=== PATIENT | female | born 1945 | race Caucasian/White ===

== ENCOUNTER 2018-07-02 17:13 | Inpatient (IN) ==
--- NOTE | 2018-07-02 17:52 | ED ---
HPI General Chief Complaint: Abdominal Pain Stated Complaint: ABD Pain Time Seen by Provider: 07/02/18 17:23 History of Present Illness HPI narrative: 72 year old female presents to the ED for evaluation of epigastric pain. She reports it began around 3 hours ago and radiates to her back. She reports nausea but no vomiting. No changes in bowel movements. She reports that the pain is 6/10 and constant. She states that it improves when she burps. She says that she has HTN and had open heart surgery 8 months ago. She denies any abdominal surgery besides a tubal ligation many years ago. Patient denies shortness of breath, chest pain, headaches, dizziness, blurry vision. Denies any to make it better or worse. Per patient she denies eating anything new. [place]. 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 SKIN: Focused skin assessment warm/dry. HEAD: Atraumatic. Normocephalic. EYES: Pupils equal and round. No scleral icterus. No injection or drainage. ENT: No nasal bleeding or discharge. Mucous membranes pink and moist. Tongue is midline. No uvula deviation. NECK: Trachea midline. No JVD. CARDIOVASCULAR: Regular rate and rhythm. No murmur appreciated. RESPIRATORY: No accessory muscle use. Clear to auscultation. Breath sounds equal bilaterally. GASTROINTESTINAL: Abdomen soft, some tenderness to palpation on the right upper quadrant of the abdomen, nondistended. Hepatic and splenic margins not palpable. MUSCULOSKELETAL: No obvious deformities. No clubbing. No cyanosis. No edema. Full range of motion of the upper and lower extremity bilaterally. 2+ pulses bilaterally. NEUROLOGICAL: Awake and alert. No obvious cranial nerve deficits. Motor grossly within normal limits. Normal speech. PSYCHIATRIC: Appropriate mood and affect; insight and judgment normal. Course Initial Documented Vital Signs Temperature 97.4 F L 07/02/18 17:16 Pulse Rate 82 07/02/18 17:16 Respiratory Rate 17 07/02/18 17:16 Blood Pressure 235/108 H 07/02/18 17:16 Pulse Oximetry 100 07/02/18 17:16 Last Documented Vital Signs Temperature 97.9 F 07/02/18 18:31 Pulse Rate 81 07/02/18 18:31 Respiratory Rate 22 07/02/18 18:31 Blood Pressure 241/119 H 07/02/18 18:31 Pulse Oximetry 100 07/02/18 18:31 Medical Decision Making MDM Narrative Medical decision making narrative: 72-year-old female who presents to the ED for evaluation of epigastric pain. Patient was properly examined and was found to have signs and symptoms consistent with appears to be epigastric pain. Unclear etiology. Labs and imaging ordered. Labs and imaging show elevated LFTs and signs of possible gallbladder versus liver disease. Ultrasound was ordered. Ultrasound did show possible obstruction with inflammation of the gallbladder. Cannot really see a gallbladder stone but they recommended HIDA scan if concern for cholecystitis. Because of the patient's symptoms I do recommend admission for further evaluation and treatment for this. Case discussed with my attending who recommends the patient be admitted for this. Case discussed with Dr. Vernon who agrees admission to her service. HIDA scan ordered by hair. Case discussed with patient's family and patient herself agree with admission plan. Patient started on Zosyn by me. Medical Screen Exam Complete: Yes Emergency Medical Condition: Yes Differential Diagnosis Differential Diagnosis: Chest pain versus ACS versus epigastric pain versus pancreatitis versus gallbladder disease versus cholecystitis versus cholelithiasis Medical Records Medical records reviewed: Yes I reviewed the patient's medical records. Lab Data Lab results reviewed: Yes I reviewed the patient's lab results. Result diagrams: 07/02/18 17:51 07/02/18 17:51 Lab Results 07/02/18 07/02/18 07/02/18 Range/Units 17:51 17:51 17:51 WBC 5.8 (4.0-11.0) th/mm3 RBC 4.67 (4.00-5.30) mil/mm3 Hgb 13.2 (11.6-15.3) gm/dL Hct 39.8 (35.0-46.0) % MCV 85.3 (80.0-100.0) fL MCH 28.4 (27.0-34.0) pg MCHC 33.3 (32.0-36.0) % RDW 16.0 (11.6-17.2) % Plt Count 146 L (150-450) th/mm3 MPV 8.1 (7.0-11.0) fL Neut % (Auto) 79.6 H (16.0-70.0) % Lymph % (Auto) 11.5 (9.0-44.0) % [place] % (Auto) 7.4 (0.0-8.0) % Eos % (Auto) 1.1 (0.0-4.0) % Baso % (Auto) 0.4 (0.0-2.0) % Neut # (Auto) 4.6 (1.8-7.7) th/mm3 Lymph # (Auto) 0.7 L (1.0-4.8) th/mm3 [place] # (Auto) 0.4 (0.0-0.9) th/mm3 Eos # (Auto) 0.1 (0.0-0.4) th/mm3 Baso # (Auto) 0.0 (0.0-0.2) th/mm3 WBC Differential . Differential Comment Auto diff final Sodium 140 (136-145) meq/L Potassium 3.9 (3.5-5.1) meq/L Chloride 104 (98-107) meq/L Carbon Dioxide 27.1 (21.0-32.0) meq/L Anion Gap 9 (5-15) meq/L BUN 18 (7-18) mg/dL Creatinine 1.02 H (0.50-1.00) mg/dL Estimated GFR 53 L (>89) mL/min Random Glucose 156 H (74-106) mg/dL Calcium 9.7 (8.5-10.1) mg/dL Total Bilirubin 1.7 H (0.2-1.0) mg/dL AST 80 H (15-37) U/L ALT 59 H (10-53) U/L Alkaline Phosphatase 130 H (45-117) U/L Total Creatine Kinase 173 (26-192) U/L CK-MB (CK-2) 5.1 H (0.5-3.6) ng/mL Troponin I Less than 0.02 L (0.02-0.05) ng/mL Total Protein 8.1 (6.4-8.2) g/dL Albumin 4.5 (3.4-5.0) g/dL Lipase 169 (73-393) U/L Imaging Data Attestation: I personally reviewed and interpreted this imaging study as follows : Radiologist's impression: Chest X-Ray 07/02/18 17:45 CONCLUSION: No acute cardiopulmonary disease identified. Gallbladder Ultrasound 07/02/18 18:57 CONCLUSION: 1. Equivocal findings with a focal area of echogenicity adjacent to the dependent gallbladder wall without shadowing. Cannot exclude a nonshadowing stone with certainty. Prominent common bile duct at the upper limits normal in size without definite intraluminal filling defect. If there is a high clinical index of suspicion for cholecystitis, may consider performing nuclear hepatobiliary tract scan. ECG Data Attestation: I personally reviewed and interpreted this ECG as follows: Interpretation: EKG shows sinus rhythm with no sign of acute ischemia or arrhythmia read by me and attending. Discharge Plan Discharge Order Discharge Orders: ED Use Only Admit Order (Routine); Ordered 07/02/18 Ordered By: Dewayne Bull Physicians Team ED Provider: Lincoln Barry ED Midlevel Provider: Dewayne Bull Rxs /Orders / Referrals /Forms Prescriptions: No Action metoprolol tartrate 100 mg Tablet 50 mg PO BID RF: 0 clopidogrel [Plavix] 75 mg Tablet 75 mg PO DAILY RF: 0 aspirin [Aspirin Low Dose] 81 mg Tablet,Delayed Release (Dr/Ec) 81 mg PO DAILY RF: 0 ergocalciferol (vitamin D2) [Vitamin D2] 50,000 unit Capsule 50,000 unit PO QWEEK RF: 0 Status ED Status: Admitted Patient
--- NOTE | 2018-07-02 18:02 | XR ---
EXAM DATE: 07/02/2018 5:57 PM EST AGE/SEX: 72 years / Female INDICATIONS: Chest pain. CLINICAL DATA: This is the patient's subsequent encounter. Patient reports that signs and symptoms h ave been present for 1 day and indicates a pain score of 6/10. MEDICAL/SURGICAL HISTORY: Cardiovascular disease. CABG. COMPARISON: No prior exams available for comparison. FINDINGS: Single AP view the chest. Median sternotomy wires are present. The lungs are clear. Cardio mediastinal silhouette within normal limits. No evidence of pleural effusion or pneumothorax. CONCLUSION: No acute cardiopulmonary disease identified. Electronically signed by: Naren Stanton MD Board Certified Radiologist 07/02/2018 6:01 PM EST
[2018-07-02 18:09] LABS: Baso % (Auto) 0.4 % (0.0-2.0); Eos # (Auto) 0.1 th/mm3 (0.0-0.4); Eos % (Auto) 1.1 % (0.0-4.0); Hematocrit 39.8 % (35.0-46.0); Hemoglobin 13.2 gm/dL (11.6-15.3); Lymph # (Auto) 0.7 th/mm3 (1.0-4.8); Lymph % (Auto) 11.5 % (9.0-44.0); Mean Corpuscular HGB Conc 33.3 % (32.0-36.0); Mean Corpuscular Hemoglobin 28.4 pg (27.0-34.0); Mean Corpuscular Volume 85.3 fL (80.0-100.0); Mean Platelet Volume 8.1 fL (7.0-11.0); Mono # (Auto) 0.4 th/mm3 (0.0-0.9); Mono % (Auto) 7.4 % (0.0-8.0); Neut # (Auto) 4.6 th/mm3 (1.8-7.7); Neut % (Auto) 79.6 % (16.0-70.0); Platelet Count 146 th/mm3 (150-450); Red Blood Count 4.67 mil/mm3 (4.00-5.30); White Blood Count 5.8 th/mm3 (4.0-11.0)
[2018-07-02] MEDS ORDERED: Morphine Inj 4 MG/ML Vial IV.PUSH ONE (18:18)
[2018-07-02 18:50] LABS: Albumin 4.5 g/dL (3.4-5.0); Anion Gap 9 meq/L (5-15); Aspartate Aminotransferase 80 U/L (15-37); Blood Urea Nitrogen 18 mg/dL (7-18); Calcium 9.7 mg/dL (8.5-10.1); Carbon Dioxide 27.1 meq/L (21.0-32.0); Chloride 104 meq/L (98-107); Glomerular Filtration Rate 53 mL/min (>89); Glucose,Random 156 mg/dL (74-106); Potassium 3.9 meq/L (3.5-5.1); Sodium 140 meq/L (136-145)
[2018-07-02 18:55] LABS: Alanine Aminotransferase 59 U/L (10-53); Alkaline Phosphatase 130 U/L (45-117); Creatine Kinase 173 U/L (26-192); Total Protein 8.1 g/dL (6.4-8.2)
[2018-07-02 19:07] LABS: Creatine Kinase MB 5.1 ng/mL (0.5-3.6)
--- NOTE | 2018-07-02 20:21 | US ---
EXAM DATE: 07/02/2018 8:04 PM EST AGE/SEX: 72 years / Female INDICATIONS: Right upper quadrant pain. CLINICAL DATA: This is the patient's initial encounter. Patient reports that signs and symptoms have been present for 1 week and indicates a pain score of 2/10. MEDICAL/SURGICAL HISTORY: . High blood pressure. . Heart surgery. COMPARISON: No prior exams available for comparison. MEASUREMENTS: Liver:__ 15.3 cm. Common Bile Duct:__ 7mm. FINDINGS: Liver: Normal echogenicity without focal lesion or ductal dilatation. Portal Vein: Hepatopedal flow seen in portal vein. Common Duct: No filling defects seen within the common duct; common duct is prominent, but still yessica sures within normal limits at 7 mm. Gallbladder: No anterior gallbladder wall thickening. There is a focal nonshadowing echogenic area m easuring 1.0 cm in the dependent wall which could represent a stone or focal thickening of the wall. On some of the images, this echogenic area appears to project into the lumen. No pericholecystic flui d. Pancreas: The visualized portions are within normal limits Right Kidney: Increased echogenicity. No mass or hydronephrosis. Other: None. CONCLUSION: 1. Equivocal findings with a focal area of echogenicity adjacent to the dependent gallbladder wall w ithout shadowing. Cannot exclude a nonshadowing stone with certainty. Prominent common bile duct at t he upper limits normal in size without definite intraluminal filling defect. If there is a high clini ruby index of suspicion for cholecystitis, may consider performing nuclear hepatobiliary tract scan. Electronically signed by: Hair Aranda MD Board Certified Radiologist 07/02/2018 8:20 PM EST
[2018-07-02] MEDS ORDERED: Piperacil/Tazo 3.375 GM Premix 3.375 GM/50 ML PIGGYBACK IV.SIG ONE (20:28)
[2018-07-02] MEDS ORDERED: Sincalide Inj 1.2 MCG in Sodium Chlor 0.9% Inj 50 ML IV.SIG ONE (20:40)
[2018-07-02] MEDS ORDERED: Acetaminophen 325 MG Tablet PO PRN (20:40)
[2018-07-02] MEDS ORDERED: Bisacodyl 10 MG Supp RECTAL PRN (20:40)
[2018-07-02] MEDS ORDERED: Morphine Sulfate Inj 2 MG/ML Vial IV.PUSH PRN (20:40)
[2018-07-02] MEDS ORDERED: hydrALAZINE HCl Inj 20 MG/ML Vial IV.PUSH ONE (20:41)
--- NOTE | 2018-07-02 20:45 | P.HPIM ---
History of Present Illness History of Present Illness: This is a 72-year-old female with a PMH of HTN and CAD who presented to ER with complaints of abdominal pain starting earlier this afternoon. Notes pain is epigastric/RUQ, severe, 7-8/10, non-radiating, associated w/ nausea but no vomiting. No previous h/o similar symptoms. Denies fever or chills. On arrival, BP 235/108, HR 82, O2 sat 100% on RA, Afebrile. CBC unremarkable except for platelets 146, no previous labs for comparison. Creatinine 1.02, no previous labs for comparison. Total Bili 1.7. AST 80, ALT 59, ALP 130. Gallbladder US with equivocal findings, possible stone versus cholecystitis. There were no acute findings. Diagnosis (1) Acute cholecystitis: (2) HTN (hypertension): (3) Thrombocytopenia: (4) WILLARD (acute kidney injury): Inpatient Certification Inpatient Certification: I certify that the inpatient services were ordered in accordance with Medicare regulations governing the order. This includes certification that hospital inpatient services are reasonable and necessary and in the case of services not specified as inpatient-only under 42 CFR 419.22(n), that they are appropriately provided as inpatient services in accordance to with the 2-midnight benchmark under 43 CFR 412.3(e) Estimated Total Length of Stay (Days): 2 Plans for Post Hospital Care: Not yet determined Review of Systems PAST FAMILY HISTORY: Reviewed. No h/o DM or CAD Review of Systems: all other systems reviewed are negative [facility] Medical History Medical History HBP (high blood pressure) (Acute) Surgical History Surgical History H/O heart surgery (Acute) Social History Social History Substance History: No History of Abuse Second Hand Smoke Exposure: No Smoking Status: Never smoker How Often Do You Have a Drink Containing Alcohol: Never Recent Travel in [facility] within the Last 8 Weeks: No Recent Out of Country Travel within the Last 8 Weeks: No Immunization History Tetanus Immunization: >5 Years Medications and Allergies Allergies Allergy/AdvReac Type Severity Reaction Status Date / Time streptomycin Allergy Hives Verified 07/02/18 17:28 Home Medications Medication Instructions Recorded Confirmed Type aspirin [Aspirin Low Dose] 81 mg PO DAILY 07/02/18 07/02/18 History clopidogrel [Plavix] 75 mg PO DAILY 07/02/18 07/02/18 History ergocalciferol (vitamin D2) 50,000 unit PO QWEEK 07/02/18 07/02/18 History [Vitamin D2] metoprolol tartrate 50 mg PO BID 07/02/18 07/02/18 History Active Medications: Active Medications Acetaminophen (Tylenol) 650 mg PO Q4H PRN PRN Reason: Temp > 100.4 Al Hydroxide/Mg Hydroxide (Milk Of Magnesia Liq) 30 ml PO Q12H PRN PRN Reason: Mild Constipation Bisacodyl (Dulcolax Supp) 10 mg RECTAL DAILY PRN PRN Reason: SEVERE CONSITIPATION Piperacillin/Tazobactam/Dextrose (Zosyn 3.375 Gm Premix) 3.375 gm in 50 mls @ 100 mls/hr IV.SIG ONCE ONE Stop: 07/02/18 20:57 Sincalide 1.2 mcg/ Sodium (Chloride) 50 mls @ 400 mls/hr IV.SIG ONCE ONE Stop: 07/02/18 20:47 Piperacillin/Tazobactam/Dextrose (Zosyn 4.5 Gm Premix) 4.5 gm in 100 mls @ 200 mls/hr IV.SIG Q6H VANESSA Lactulose (Lactulose Liq) 30 ml PO DAILY PRN PRN Reason: SEVERE CONSITIPATION Morphine Sulfate (Morphine Inj) 2 mg IV.PUSH Q4H PRN PRN Reason: PAIN SCALE 6 TO 10 Ondansetron HCl (Zofran Inj) 4 mg IV.PUSH Q6H PRN PRN Reason: NAUSEA OR VOMITING Physical Exam Vital signs: Vital Signs 07/02/18 17:16 07/02/18 17:45 07/02/18 18:31 Temperature 97.4 F L 97.8 F 97.9 F Pulse Rate 82 75 81 Respiratory Rate 17 20 22 Blood Pressure 235/108 H 215/105 H 241/119 H Pulse Oximetry 100 99 100 Intake & Output 07/02/18 07/02/18 07/03/18 06:59 18:59 06:59 Weight 57.606 kg Narrative: PE: GENERAL: Very pleasant middle-aged white female in no acute distress. SKIN: Focused skin assessment warm and dry. HEENT: PERRLA, EOMI. No scleral icterus or conjunctival pallor. No lid lag or facial droop. CARDIOVASCULAR: Regular rate and rhythm. No obvious murmurs to auscultation. No chest tenderness to palpation. RESPIRATORY: No obvious rhonchi or wheezing. Clear to auscultation. Breath sounds equal bilaterally. GASTROINTESTINAL: Abdomen soft, RUQ tenderness to palpation, nondistended. BS normal. MUSCULOSKELETAL: Extremities without clubbing, cyanosis, or edema. No obvious deformities. NEUROLOGICAL: Awake, alert and oriented x4. No focal neurologic deficits. Moving both upper and lower extremities spontaneously. PSYCHIATRIC: Appropriate mood and affect. Insight and judgment normal. Results Labs CBC & Chem 7: 07/02/18 17:51 07/02/18 17:51 Imaging Impressions Chest X-Ray 07/02/18 17:45 CONCLUSION: No acute cardiopulmonary disease identified. Gallbladder Ultrasound 07/02/18 18:57 CONCLUSION: 1. Equivocal findings with a focal area of echogenicity adjacent to the dependent gallbladder wall without shadowing. Cannot exclude a nonshadowing stone with certainty. Prominent common bile duct at the upper limits normal in size without definite intraluminal filling defect. If there is a high clinical index of suspicion for cholecystitis, may consider performing nuclear hepatobiliary tract scan. Caprini VTE Risk Assessment Caprini VTE Risk Assessment: No/Low Risk (score <= 1) Caprini Risk Assessment Model: Point Value = 1 Point Value = 2 Point Value = 3 Point Value = 5 Age 41-60 Minor surgery BMI > 25 kg/m2 Swollen legs Varicose veins or History of unexplained or recurrent spontaneous Oral contraceptives or hormone replacement Sepsis (< 1 month) Serious lung disease, including pneumonia (< 1 month) Abnormal pulmonary function Acute myocardial infarction Congestive heart failure (< 1 month) History of inflammatory bowel disease Medical patient at bed rest Age 61-74 Arthroscopic surgery Major open surgery (> 45 min) Laparoscopic surgery (> 45 min) Malignancy Confined to bed (> 72 hours) Immobilizing plaster cast Central venous access Age >= 75 History of VTE Family history of VTE Factor V Leiden Prothrombin [id number] Lupus anticoagulant Anticardiolipin antibodies Elevated serum homocysteine Heparin-induced thrombocytopenia Other congenital or acquired thrombophilia Stroke (< 1 month) Elective arthroplasty Hip, pelvis, or leg fracture Acute spinal cord injury (< 1 month) Prophylaxis Regimen: Total Risk Factor Score Risk Level Prophylaxis Regimen 0-1 Low Early ambulation 2 Moderate Order ONE of the following: *Sequential Compression Device (SCD) *Heparin 5000 units SQ BID 3-4 Higher Order ONE of the following medications: *Heparin 5000 units SQ TID *Enoxaparin/Lovenox 40 mg SQ daily (WT < 150 kg, CrCl > 30 mL/min) *Enoxaparin/Lovenox 30 mg SQ daily (WT < 150 kg, CrCl > 10-29 mL/min) *Enoxaparin/Lovenox 30 mg SQ BID (WT < 150 kg, CrCl > 30 mL/min) AND/OR *Sequential Compression Device (SCD) 5 or more Highest Order ONE of the following medications: *Heparin 5000 units SQ TID (Preferred with Epidurals) *Enoxaparin/Lovenox 40 mg SQ daily (WT < 150 kg, CrCl > 30 mL/min) *Enoxaparin/Lovenox 30 mg SQ daily (WT < 150 kg, CrCl > 10-29 mL/min) *Enoxaparin/Lovenox 30 mg SQ BID (WT < 150 kg, CrCl > 30 mL/min) AND *Sequential Compression Device (SCD) Assessment and Plan (1) Acute cholecystitis: Code(s): K81.0 - Acute cholecystitis Status: Acute (2) HTN (hypertension): Code(s): I10 - Essential (primary) hypertension Status: Acute (3) Thrombocytopenia: Code(s): D69.6 - Thrombocytopenia, unspecified Status: Acute (4) WILLARD (acute kidney injury): Code(s): N17.9 - Acute kidney failure, unspecified Status: Acute Plan A/P: 1. Cholecystitis: vs cholelithiasis, Gallbladder US w/ equivocal findings- stone vs cholecystitis. Will keep NPO, check HIDA, continue IV Abx, IVF, analgesics/antiemetics as needed. Consult Gen Sx for further eval/intervention- pt lives in [place], would like to consider surgery at home if possible. 2. HTN: Uncontrolled. BP 230's on arrival, likely compounded by pain complaints, some improvement w/ Morphine however remains hypertensive, Hydralazine IV now, monitor BP, antihypertensives as needed for BP >180 3. WILLARD: Creatinine 1.02, GFR 53, no previous labs for comparison, IVF, monitor I/O, repeat labs in am. 4. Thrombocytopenia: Platelets 146, no previous labs for comparison, no active bleeding, hold ASA/Plavix for above, repeat labs in am. 5. DVT Prophylaxis: SCD/Teds 6. Social work for DC planning as needed. 7. Case discussed at length with the ER physician, labs/records/imaging reviewed by me.
--- NOTE | 2018-07-02 21:47 | ECG ---
Date Performed: 07/02/2018 Time Performed: 18:16:33 PTAGE: 72 years EKG: Sinus rhythm INCOMPLETE RIGHT BUNDLE BRANCH BLOCK MODERATE ST DEPRESSION ABNORMAL ECG NO PREVIOUS TRACING DOCTOR: Jessi Guillen Interpretating Date/Time 07/02/2018 21:46:19
[2018-07-02] MEDS: Sod Chloride 0.9% Inj 1,000 ML IV.CONT SCH (23:00)
[2018-07-03] MEDS: Piperacil/Tazo 4.5 GM Premix 4.5 GM/100 ML BAG IV.SIG SCH ×5 (00:49→23:12)
[2018-07-03] MEDS: Senna/Docusate Sodium 8.6/50 MG Tablet PO SCH ×3 (00:52→21:10)
[2018-07-03] MEDS ORDERED: hydrALAZINE HCl Inj 20 MG/ML Vial IV.PUSH ONE (03:26)
[2018-07-03] MEDS: Isosorbide Mononitrate 60 MG ER 24HR Tablet (Imdur) PO SCH (06:09)
[2018-07-03 08:29] LABS: Baso % (Auto) 0.8 % (0.0-2.0); Eos % (Auto) 0.4 % (0.0-4.0); Hematocrit 36.3 % (35.0-46.0); Hemoglobin 12.2 gm/dL (11.6-15.3); Lymph # (Auto) 0.5 th/mm3 (1.0-4.8); Lymph % (Auto) 7.3 % (9.0-44.0); Mean Corpuscular HGB Conc 33.5 % (32.0-36.0); Mean Corpuscular Hemoglobin 28.4 pg (27.0-34.0); Mean Corpuscular Volume 84.7 fL (80.0-100.0); Mean Platelet Volume 8.1 fL (7.0-11.0); Mono # (Auto) 0.3 th/mm3 (0.0-0.9); Mono % (Auto) 5.1 % (0.0-8.0); Neut # (Auto) 5.6 th/mm3 (1.8-7.7); Neut % (Auto) 86.4 % (16.0-70.0); Platelet Count 141 th/mm3 (150-450); Red Blood Count 4.29 mil/mm3 (4.00-5.30); Red Cell Distribution Width 16.3 % (11.6-17.2); White Blood Count 6.5 th/mm3 (4.0-11.0)
[2018-07-03 08:58] LABS: Alanine Aminotransferase 153 U/L (10-53); Albumin 3.6 g/dL (3.4-5.0); Alkaline Phosphatase 150 U/L (45-117); Anion Gap 12 meq/L (5-15); Aspartate Aminotransferase 142 U/L (15-37); Blood Urea Nitrogen 14 mg/dL (7-18); Calcium 8.8 mg/dL (8.5-10.1); Carbon Dioxide 23.3 meq/L (21.0-32.0); Chloride 107 meq/L (98-107); Glomerular Filtration Rate 52 mL/min (>89); Glucose,Random 140 mg/dL (74-106); Potassium 3.5 meq/L (3.5-5.1); Sodium 142 meq/L (136-145); Total Protein 6.8 g/dL (6.4-8.2)
--- NOTE | 2018-07-03 12:29 | NM ---
EXAM DATE: 07/03/2018 12:25 PM EST AGE/SEX: 72 years / Female INDICATIONS: Epigastric pain with nausea. CLINICAL DATA: This is the patient's initial encounter. Patient reports that signs and symptoms have been present for 1 day and indicates a pain score of 5/10. MEDICAL/SURGICAL HISTORY: Hypertension. Tubal ligation. Open heart surgery. COMPARISON: No prior exams available for comparison. DOSE: 4.4 mCi Tc-99m mebrofenin i.v. Medication: 1.1 mcg Cholecystokinin IV No symptomatic response Cholecystokinin was administered by slow infusion over 8 minutes beginning at 60 min nitin porsha. TECHNIQUE: Following the intravenous administration of radiotracer, dynamic sequential images were pe rformed with continuous acquisition. Time-activity curves were generated. FINDINGS: There is good radiotracer extraction by the liver with visualization of the gallbladder common duct a nd small bowel in 10 minutes. There is poor response to CCK however there was no symptomatology with CT scan administration. CONCLUSION: 1. Negative for cystic duct or common duct obstruction Electronically signed by: Lencho Elizalde MD Board Certified Radiologist 07/03/2018 12:27 PM EST
[2018-07-03] MEDS: Sod Chloride 0.9% Inj 1,000 ML IV.CONT SCH ×3 (12:35→23:05)
--- NOTE | 2018-07-03 13:34 | P.PNIM ---
Subjective Interval history: Patient seen and examined this morning. Afebrile vital signs stable. Just received further imaging for her cholecystitis. She reports no abdominal pain fine with no nausea. Is hopeful for decision to be made soon as to whether she will receive general surgery or not. She is requesting a meal as she feels that surgery will proceed today. We will wait for further recommendations at this time. Physical Exam Vital signs: Vital Signs 07/02/18 17:16 07/02/18 17:45 07/02/18 18:31 Temperature 97.4 F L 97.8 F 97.9 F Pulse Rate 82 75 81 Respiratory Rate 17 20 22 Blood Pressure 235/108 H 215/105 H 241/119 H Pulse Oximetry 100 99 100 07/02/18 21:43 07/02/18 23:00 07/03/18 03:18 Temperature 97.8 F 98.1 F Pulse Rate 80 76 Respiratory Rate 16 20 Blood Pressure 195/85 H 169/74 H 205/85 H Pulse Oximetry 95 95 07/03/18 04:00 07/03/18 08:00 07/03/18 08:10 Temperature 97.8 F 96.5 F L Pulse Rate 90 73 71 Respiratory Rate 16 18 Blood Pressure 159/70 H 136/63 Pulse Oximetry 96 95 Intake & Output 07/02/18 07/03/18 07/03/18 18:59 06:59 18:59 Intake Total 150 / 150 1100 / 1100 Balance 150 / 150 1100 / 1100 Weight 57.606 kg 57.3 kg Intake: IV 150 / 150 1100 / 1100 NS Inj 1,000 ML @ 100 mls/hr IV 1000 / 1000 .CONT .Q10H [facility] Rx#:[id number] Zosyn 3.375 GM Premix 3.375 gm 50 / 50 In 50 ml @ 100 mls/hr IV.SIG ONCE ONE Rx#:[id number] Zosyn 4.5 GM Premix 4.5 gm In 100 / 100 100 / 100 100 ml @ 200 mls/hr IV.SIG Q6H [facility] Rx#:[id number] Other: # Voids 2 Date of Last Bowel Movement 07/02/18 Weight On Admission 57.6 kg Narrative: GEN: Well-developed, well-nourished elderly female. Lying in bed patient. No acute distress. CV: Regular rate and rhythm without obvious murmurs LUNGS: Clear to auscultation bilaterally. Normal respiratory effort. No wheezes , rales, rhonchi. GI: Soft, nontender, nondistended. No palpable masses. Bowel sounds WNL. EXT: No edema. NEURO/PSYCH: Afocal. Awake, alert, and oriented x3. Appropriate insight and judgment. Results - Labs CBC & Chem 7: 07/03/18 07:00 07/03/18 07:00 Laboratory Results - last 24 hr 07/02/18 07/02/18 07/02/18 17:51 17:51 17:51 WBC 5.8 RBC 4.67 Hgb 13.2 Hct 39.8 MCV 85.3 MCH 28.4 MCHC 33.3 RDW 16.0 Plt Count 146 L MPV 8.1 Neut % (Auto) 79.6 H Lymph % (Auto) 11.5 [place] % (Auto) 7.4 Eos % (Auto) 1.1 Baso % (Auto) 0.4 Neut # (Auto) 4.6 Lymph # (Auto) 0.7 L [place] # (Auto) 0.4 Eos # (Auto) 0.1 Baso # (Auto) 0.0 WBC Differential . Differential Comment Auto diff final Sodium 140 Potassium 3.9 Chloride 104 Carbon Dioxide 27.1 Anion Gap 9 BUN 18 Creatinine 1.02 H Estimated GFR 53 L Random Glucose 156 H Calcium 9.7 Total Bilirubin 1.7 H AST 80 H ALT 59 H Alkaline Phosphatase 130 H Total Creatine Kinase 173 CK-MB (CK-2) 5.1 H Troponin I Less than 0.02 L Total Protein 8.1 Albumin 4.5 Lipase 169 07/03/18 07/03/18 07:00 07:00 WBC 6.5 RBC 4.29 Hgb 12.2 Hct 36.3 MCV 84.7 MCH 28.4 MCHC 33.5 RDW 16.3 Plt Count 141 L MPV 8.1 Neut % (Auto) 86.4 H Lymph % (Auto) 7.3 L [place] % (Auto) 5.1 Eos % (Auto) 0.4 Baso % (Auto) 0.8 Neut # (Auto) 5.6 Lymph # (Auto) 0.5 L [place] # (Auto) 0.3 Eos # (Auto) 0.0 Baso # (Auto) 0.0 WBC Differential . Differential Comment Auto diff final Sodium 142 Potassium 3.5 Chloride 107 Carbon Dioxide 23.3 Anion Gap 12 BUN 14 Creatinine 1.05 H Estimated GFR 52 L Random Glucose 140 H Calcium 8.8 D Total Bilirubin 1.6 H AST 142 H ALT 153 H Alkaline Phosphatase 150 H Total Creatine Kinase CK-MB (CK-2) Troponin I Total Protein 6.8 D Albumin 3.6 D Lipase - Imaging Impressions Chest X-Ray 07/02/18 17:45 CONCLUSION: No acute cardiopulmonary disease identified. Gallbladder Ultrasound 07/02/18 18:57 CONCLUSION: 1. Equivocal findings with a focal area of echogenicity adjacent to the dependent gallbladder wall without shadowing. Cannot exclude a nonshadowing stone with certainty. Prominent common bile duct at the upper limits normal in size without definite intraluminal filling defect. If there is a high clinical index of suspicion for cholecystitis, may consider performing nuclear hepatobiliary tract scan. Bile Acid Absorption NM 07/03/18 00:00 CONCLUSION: 1. Negative for cystic duct or common duct obstruction Assessment and Plan - Assessment (1) Acute cholecystitis Code(s): K81.0 - Acute cholecystitis Status: Acute (2) HTN (hypertension) Code(s): I10 - Essential (primary) hypertension Status: Acute (3) Thrombocytopenia Code(s): D69.6 - Thrombocytopenia, unspecified Status: Acute (4) WILLARD (acute kidney injury) Code(s): N17.9 - Acute kidney failure, unspecified Status: Acute - Plan This is a 72-year-old female with a PMH of HTN and CAD who is admitted for abdominal pain with likely caused by cholecystitis 1. Cholecystitis: vs cholelithiasis -Gallbladder US w/ equivocal findings-stone vs cholecystitis. -Status post HIDA awaiting results, continue IV Abx, IVF, analgesics/ antiemetics as needed. -Consult Gen Sx for further eval/intervention-pt lives in [place], would like to consider surgery at home if possible. -Starting diet if tolerating and no surgery discharge home possible tomorrow 2. HTN: controlled. -Hydralazine IV now, monitor BP, antihypertensives as needed for BP >180 3. WILLARD: Creatinine 1.05, GFR 53, no previous labs for comparison, IVF, monitor I/O, repeat labs in am. 4. Thrombocytopenia: Platelets 141, no previous labs for comparison, no active bleeding, -hold ASA/Plavix for above, repeat labs in am. 5. DVT Prophylaxis: SCD/Teds 6. Social work for DC planning as needed.
--- NOTE | 2018-07-03 15:21 | P.CONGS ---
[facility] Consult Note Consult date: 07/03/18 Reason for consult: abdominal pain Narrative: CONSULTATION NOTE FOR SURGICAL ATTENDING, DR. ART NORTH Patient was admitted to the hospital yesterday with some abdominal discomfort she had a imaging that brought up the concern of possible gallstones. Surgery was consulted for recommendations. The patient lives in [place] and would like not to have surgery in [facility] but have surgery at home in [place]. Presently she is having no significant abdominal discomfort wanting to eat. She is never had a pain like this was in her right upper quadrant going into her back with a little bloating She did related to certain meals PMFSH - History History Provided By: Patient - Medical History Medical History: Medical History (Last Reviewed 07/03/18 @ 15:17 by Art North MD) HBP (high blood pressure) - Surgical History Surgical History: Surgical History (Last Reviewed 07/03/18 @ 15:17 by Art North MD) H/O heart surgery - Social History I have reviewed the patient's Social History: Yes - Tobacco History Second Hand Smoke Exposure: No Tobacco Use In Past 30 Days: No Smoking Status: Never smoker - Alcohol History How Often Do You Have a Drink Containing Alcohol: Never - Substance Use History Substance History: No History of Abuse - Travel History Recent Travel in the [place] Within the Last 8 Weeks: No Recent Travel Out of the Country Within the Last 8 Weeks: No - Immunization History Tetanus Immunization: <5 Years Hx Influenza Vaccine This Season: No Medications and Allergies Active Medications: Active Medications Acetaminophen (Tylenol) 650 mg PO Q4H PRN PRN Reason: Temp > 100.4 Al Hydroxide/Mg Hydroxide (Milk Of Magnesia Liq) 30 ml PO Q12H PRN PRN Reason: Mild Constipation Atorvastatin Calcium (Lipitor) 40 mg PO DAILY [facility] Last Admin: 07/03/18 08:15 Dose: 40 mg Bisacodyl (Dulcolax Supp) 10 mg RECTAL DAILY PRN PRN Reason: SEVERE CONSITIPATION Clonidine HCl (Catapres) 0.1 mg PO Q6H PRN PRN Reason: SBP>160 or DBP>100 if HR>60 Piperacillin/Tazobactam/Dextrose (Zosyn 4.5 Gm Premix) 4.5 gm in 100 mls @ 200 mls/hr IV.SIG Q6H [facility] Last Infusion: 07/03/18 13:05 Dose: Infused Sodium Chloride (Ns Inj) 1,000 mls @ 100 mls/hr IV.CONT .Q10H [facility] Last Admin: 07/03/18 12:35 Dose: 100 mls/hr Isosorbide Mononitrate (Imdur) 120 mg PO DAILY@0700 [facility] Last Admin: 07/03/18 06:09 Dose: 120 mg Lactulose (Lactulose Liq) 30 ml PO DAILY PRN PRN Reason: SEVERE CONSITIPATION Morphine Sulfate (Morphine Inj) 2 mg IV.PUSH Q4H PRN PRN Reason: PAIN SCALE 6 TO 10 Ondansetron HCl (Zofran Inj) 4 mg IV.PUSH Q6H PRN PRN Reason: NAUSEA OR VOMITING Last Admin: 07/03/18 00:50 Dose: 4 mg Pantoprazole Sodium (Protonix) 40 mg PO DAILY [facility] Last Admin: 07/03/18 08:15 Dose: 40 mg Senna/Docusate Sodium (Kamila-Colace) 1 tab PO BID [facility] Last Admin: 07/03/18 08:16 Dose: Not Given Sennosides (Senokot) 17.2 mg PO Q12H PRN PRN Reason: Moderate Constipation Sodium Chloride (Ns Flush) 2 ml IV.FLUSH BID [facility] Last Admin: 07/03/18 10:45 Dose: Not Given Sodium Chloride (Ns Flush) 2 ml IV.FLUSH PRN PRN PRN Reason: FLUSH AFTER USING IV ACCESS Allergies Allergy/AdvReac Type Severity Reaction Status Date / Time streptomycin Allergy Hives Verified 07/02/18 17:28 Home Medications Medication Instructions Recorded Confirmed Type aspirin [Aspirin Low Dose] 81 mg PO DAILY 07/02/18 07/02/18 History clopidogrel [Plavix] 75 mg PO DAILY 07/02/18 07/02/18 History ergocalciferol (vitamin D2) 50,000 unit PO QWEEK 07/02/18 07/02/18 History [Vitamin D2] metoprolol tartrate 50 mg PO BID 07/02/18 07/02/18 History pantoprazole 40 mg PO DAILY 07/02/18 07/03/18 History atorvastatin [Lipitor] 40 mg PO DAILY 07/03/18 07/03/18 History clonidine HCl 0.1 PO DAILY 07/03/18 History isosorbide mononitrate 120 mg PO QAM 07/03/18 07/03/18 History Exam Vital signs: Vital Signs 07/02/18 17:16 07/02/18 17:45 07/02/18 18:31 Temperature 97.4 F L 97.8 F 97.9 F Pulse Rate 82 75 81 Respiratory Rate 17 20 22 Blood Pressure 235/108 H 215/105 H 241/119 H Pulse Oximetry 100 99 100 07/02/18 21:43 07/02/18 23:00 07/03/18 03:18 Temperature 97.8 F 98.1 F Pulse Rate 80 76 Respiratory Rate 16 20 Blood Pressure 195/85 H 169/74 H 205/85 H Pulse Oximetry 95 95 07/03/18 04:00 07/03/18 08:00 07/03/18 08:10 Temperature 97.8 F 96.5 F L Pulse Rate 90 73 71 Respiratory Rate 16 18 Blood Pressure 159/70 H 136/63 Pulse Oximetry 96 95 07/03/18 12:00 Temperature 97.9 F Pulse Rate 72 Respiratory Rate 18 Blood Pressure 175/72 H Pulse Oximetry 98 Intake & Output 07/02/18 07/03/18 07/03/18 18:59 06:59 18:59 Intake Total 150 / 150 1200 / 1200 Balance 150 / 150 1200 / 1200 Weight 57.606 kg 57.3 kg Intake: IV 150 / 150 1200 / 1200 NS Inj 1,000 ML @ 100 mls/hr IV 1000 / 1000 .CONT .Q10H [facility] Rx#:[id number] Zosyn 3.375 GM Premix 3.375 gm 50 / 50 In 50 ml @ 100 mls/hr IV.SIG ONCE ONE Rx#:[id number] Zosyn 4.5 GM Premix 4.5 gm In 100 / 100 200 / 200 100 ml @ 200 mls/hr IV.SIG Q6H [facility] Rx#:[id number] Other: # Voids 2 Date of Last Bowel Movement 07/02/18 Weight On Admission 57.6 kg Narrative: Sitting up in bed Looks her stated age Neck is supple without JVD Heart regular rate chest is clear median sternotomy scar. Abdomen thin soft mild soreness to very deep palpation of right upper quadrant no rebound or guarding negative [place]'s Extremities moves all extremities no clubbing cyanosis or edema neurologic she is alert oriented little frustrated with her medical conditions anxious to go back home Results - Labs 07/03/18 07:00 07/03/18 07:00 - Imaging Imaging: ITS Impressions Chest X-Ray 07/02/18 17:45 CONCLUSION: No acute cardiopulmonary disease identified. Gallbladder Ultrasound 07/02/18 18:57 CONCLUSION: 1. Equivocal findings with a focal area of echogenicity adjacent to the dependent gallbladder wall without shadowing. Cannot exclude a nonshadowing stone with certainty. Prominent common bile duct at the upper limits normal in size without definite intraluminal filling defect. If there is a high clinical index of suspicion for cholecystitis, may consider performing nuclear hepatobiliary tract scan. Bile Acid Absorption NM 07/03/18 00:00 CONCLUSION: 1. Negative for cystic duct or common duct obstruction Assessment and Plan - Assessment (1) Abdominal pain, right upper quadrant Code(s): R10.11 - Right upper quadrant pain Status: Acute (2) WILLARD (acute kidney injury) Code(s): N17.9 - Acute kidney failure, unspecified Status: Acute (3) Thrombocytopenia Code(s): D69.6 - Thrombocytopenia, unspecified Status: Acute (4) HTN (hypertension) Code(s): I10 - Essential (primary) hypertension Status: Acute - Plan 72-year-old female came to the emergency room complaining some abdominal discomfort initial imaging brought up the possibility of biliary stones. Subsequent HIDA scan failed to reveal any gallbladder dysfunction. Her pain is resolved She would like to go home if surgery is needed. I would see how she does today and planned discharge tomorrow with her returning up to [place] on Wednesday. Recommend p.o. antibiotics for the drive home We will be available if needed - Attending Attestation CONSULTATION NOTE FOR SURGICAL ATTENDING, DR. ART NORTH I agree with above assessment and plan. The exam, history, and the medical decision-making described in the above note were completed with the assistance of the mid-level provider. I reviewed and agree with the findings presented. I attest that I had a [id number] encounter with the patient on the same day, and personally performed and documented my assessment and findings in the medical record. The following services were provided during this hospital visit: Chart data review, vital sign assessments/reviewing monitor data Review of consultations notes if present. Medication orders/review and/or management Ordering and/or reviewing lab tests Ordering and/or interpreting/reviewing x-rays and/or diagnostic studies Care of the patient and discussion of the patient with the care team Documentation time To help prompt me to consider important information that might be impacting today's encounter and assessment, Information from prior notes written by myself or my colleagues may have been "brought forward/copy and pasted" into today's note.
[2018-07-04] MEDS: Piperacil/Tazo 4.5 GM Premix 4.5 GM/100 ML BAG IV.SIG SCH ×2 (05:03→12:36)
[2018-07-04] MEDS: Sod Chloride 0.9% Inj 1,000 ML IV.CONT SCH (05:41)
[2018-07-04] MEDS: Isosorbide Mononitrate 60 MG ER 24HR Tablet (Imdur) PO SCH (06:19)
[2018-07-04 07:30] LABS: Hematocrit 33.1 % (35.0-46.0); Hemoglobin 11.4 gm/dL (11.6-15.3); Mean Corpuscular HGB Conc 34.5 % (32.0-36.0); Mean Corpuscular Hemoglobin 29.8 pg (27.0-34.0); Mean Corpuscular Volume 86.3 fL (80.0-100.0); Mean Platelet Volume 7.8 fL (7.0-11.0); Platelet Count 119 th/mm3 (150-450); Red Blood Count 3.83 mil/mm3 (4.00-5.30); Red Cell Distribution Width 16.1 % (11.6-17.2); White Blood Count 3.7 th/mm3 (4.0-11.0)
[2018-07-04 07:50] LABS: Albumin 3.2 g/dL (3.4-5.0); Anion Gap 5 meq/L (5-15); Aspartate Aminotransferase 59 U/L (15-37); Blood Urea Nitrogen 11 mg/dL (7-18); Calcium 8.4 mg/dL (8.5-10.1); Carbon Dioxide 27.6 meq/L (21.0-32.0); Chloride 113 meq/L (98-107); Glomerular Filtration Rate 49 mL/min (>89); Glucose,Random 117 mg/dL (74-106); Potassium 3.5 meq/L (3.5-5.1); Sodium 146 meq/L (136-145)
[2018-07-04 07:53] LABS: Alanine Aminotransferase 98 U/L (10-53); Alkaline Phosphatase 135 U/L (45-117); Total Protein 6.1 g/dL (6.4-8.2)
--- NOTE | 2018-07-04 08:12 | P.PNGS ---
Subjective Interval history: DAILY PROGRESS NOTE FOR SURGICAL ATTENDING, DR. SHAHIDA BERNABE Resting in bed Did not sleep well due to a very noisy neighbor Tolerating dinner Pain better Physical Exam Vital signs: Vital Signs 07/03/18 12:00 07/03/18 16:00 07/03/18 20:00 Temperature 97.9 F 97.8 F 97.7 F Pulse Rate 72 70 74 Respiratory Rate 18 18 18 Blood Pressure 175/72 H 166/70 H 164/72 H Pulse Oximetry 98 98 96 07/04/18 00:00 07/04/18 00:05 07/04/18 04:00 Temperature 97.8 F Pulse Rate 71 80 71 Respiratory Rate 18 Blood Pressure 156/69 H Pulse Oximetry 96 07/04/18 04:50 Temperature 98.2 F Pulse Rate 79 Respiratory Rate 16 Blood Pressure 201/83 H Pulse Oximetry 97 Intake & Output 07/03/18 07/04/18 07/04/18 18:59 06:59 18:59 Intake Total 1540 / 1540 1440 / 1440 Output Total 3 / 3 Balance 1540 / 1540 1437 / 1437 Weight 57.3 kg Intake: IV 1300 / 1300 1200 / 1200 NS Inj 1,000 ML @ 100 mls/hr IV 1000 / 1000 1000 / 1000 .CONT .Q10H [facility] Rx#:[id number] Zosyn 4.5 GM Premix 4.5 gm In 300 / 300 200 / 200 100 ml @ 200 mls/hr IV.SIG Q6H [facility] Rx#:[id number] Oral 240 / 240 240 / 240 Output: Urine 3 / 3 Other: Date of Last Bowel Movement 07/02/18 Narrative: Awake and alert Abd: soft; minimal RUQ tenderness with palpation Results - Labs 07/04/18 07:15 07/04/18 07:15 Laboratory Results - last 24 hr 07/03/18 07/03/18 07/04/18 07:00 07:00 07:15 WBC 6.5 3.7 L RBC 4.29 3.83 L Hgb 12.2 11.4 L Hct 36.3 33.1 L MCV 84.7 86.3 MCH 28.4 29.8 MCHC 33.5 34.5 RDW 16.3 16.1 Plt Count 141 L 119 L MPV 8.1 7.8 Neut % (Auto) 86.4 H Lymph % (Auto) 7.3 L [place] % (Auto) 5.1 Eos % (Auto) 0.4 Baso % (Auto) 0.8 Neut # (Auto) 5.6 Lymph # (Auto) 0.5 L [place] # (Auto) 0.3 Eos # (Auto) 0.0 Baso # (Auto) 0.0 WBC Differential . Differential Comment Auto diff final Sodium 142 Potassium 3.5 Chloride 107 Carbon Dioxide 23.3 Anion Gap 12 BUN 14 Creatinine 1.05 H Estimated GFR 52 L Random Glucose 140 H Calcium 8.8 D Total Bilirubin 1.6 H AST 142 H ALT 153 H Alkaline Phosphatase 150 H Total Protein 6.8 D Albumin 3.6 D 07/04/18 07:15 WBC RBC Hgb Hct MCV MCH MCHC RDW Plt Count MPV Neut % (Auto) Lymph % (Auto) [place] % (Auto) Eos % (Auto) Baso % (Auto) Neut # (Auto) Lymph # (Auto) [place] # (Auto) Eos # (Auto) Baso # (Auto) WBC Differential Differential Comment Sodium 146 H Potassium 3.5 Chloride 113 H Carbon Dioxide 27.6 Anion Gap 5 BUN 11 Creatinine 1.09 H Estimated GFR 49 L Random Glucose 117 H Calcium 8.4 L Total Bilirubin 0.9 AST 59 H ALT 98 H Alkaline Phosphatase 135 H Total Protein 6.1 L D Albumin 3.2 L - Imaging Imaging: ITS Impressions Chest X-Ray 07/02/18 17:45 CONCLUSION: No acute cardiopulmonary disease identified. Gallbladder Ultrasound 07/02/18 18:57 CONCLUSION: 1. Equivocal findings with a focal area of echogenicity adjacent to the dependent gallbladder wall without shadowing. Cannot exclude a nonshadowing stone with certainty. Prominent common bile duct at the upper limits normal in size without definite intraluminal filling defect. If there is a high clinical index of suspicion for cholecystitis, may consider performing nuclear hepatobiliary tract scan. Bile Acid Absorption NM 07/03/18 00:00 CONCLUSION: 1. Negative for cystic duct or common duct obstruction Assessment and Plan - Assessment (1) Abdominal pain, right upper quadrant Code(s): R10.11 - Right upper quadrant pain Status: Acute Plan: 72 year old female with RUQ tenderness; acute cholecystitis -Tolerating dinner -Left rx for [place], Augmentin and Zofran on chart -Patient would prefer to have surgery in [place] (2) WILLARD (acute kidney injury) Code(s): N17.9 - Acute kidney failure, unspecified Status: Acute (3) Thrombocytopenia Code(s): D69.6 - Thrombocytopenia, unspecified Status: Acute (4) HTN (hypertension) Code(s): I10 - Essential (primary) hypertension Status: Acute - Attending Attestation NOTE FOR SURGICAL ATTENDING, DR. SHAHIDA BERNABE Patient feels better Would like to go to [place] to have her surgery I agree with above assessment and plan. The exam, history, and the medical decision-making described in the above note were completed with the assistance of the mid-level provider. I reviewed and agree with the findings presented. I attest that I had a [id number] encounter with the patient on the same day, and personally performed and documented my assessment and findings in the medical record. The following services were provided during this hospital visit: Chart data review, vital sign assessments/reviewing monitor data Review of consultations notes if present. Medication orders/review and/or management Ordering and/or reviewing lab tests Ordering and/or interpreting/reviewing x-rays and/or diagnostic studies Care of the patient and discussion of the patient with the care team Documentation time To help prompt me to consider important information that might be impacting today's encounter and assessment, Information from prior notes written by myself or my colleagues may have been "brought forward/copy and pasted" into today's note.
[2018-07-04 08:23] VITALS: RESP 17
[2018-07-04] MEDS: Senna/Docusate Sodium 8.6/50 MG Tablet PO SCH (08:44)
[2018-07-04 12:31] VITALS: BP 187/79; TEMP 98.3; O2SAT 97
[2018-07-04 14:51] VITALS: PULSE 86
== END 2018-07-04 14:01 | disposition home or self-care (01) | DRG 445 ==
LOC: NEPD 17:13 → NEDA 20:40 → N04 22:09 → NEDA 22:45 → N04 23:06
PROVIDERS: ADMIT Hospitalist; ATTEND Hospitalist
DX: Z79.82 Long term (current) use of aspirin; N17.9 Acute kidney failure, unspecified; Z79.02 Long term (current) use of antithrombotics/antiplatelets; K81.0 Acute cholecystitis; I25.10 Atherosclerotic heart disease of native coronary artery without angina pectoris; D69.6 Thrombocytopenia, unspecified; I10 Essential (primary) hypertension
CPT/HCPCS: 71010; 71045; 76705; 78226; 80053; 82550; 82552; 83690; 84484; 85025; 85027; 90774; 90775; 90784; 93005; 96374; 96375; 99285; A9513; A9537; C1097; C8952; J0360; J0780; J2270; J2405; J2543; J7030